=== PATIENT | female | born 1950 | race Caucasian/White ===

== ENCOUNTER → 2017-04-24 16:52 | Outpatient (CLI) | payer MEDICARE, BC ==
[2016-04-17 08:32] VITALS: BMI 32.6
[~2017-04-24 16:52] MED LIST: ACETAMINOPHEN500 M1 PO; BENADRYL25 MG PO; CALAN120 MG PO; HYDROCODONE-APA1 TAB PO; MEDROL DOSE PACK4 MG PO; NORCO 10/325 TA1 TA1 PO; ROBAXIN-750750 MG PO; ZOVIRAX800 MG PO
== END | disposition home or self-care (01) ==
LOC: D.MAMMO 15:00
DX: Z12.31 Encounter for screening mammogram for malignant neoplasm of breast (principal)

== ENCOUNTER 2017-11-11 16:14 | Emergency (ER) | payer OTHER, MEDICARE, BC ==
[2016-04-17 08:32] VITALS: BMI 32.6
== END 2017-11-11 19:35 | disposition home or self-care (01) ==
LOC: D.ER 16:14
DX: M54.2 Cervicalgia (principal); V43.52XA Car driver injured in collision with other type car in traffic accident, initial encounter; Y93.89 Activity, other specified; Y92.410 Unspecified street and highway as the place of occurrence of the external cause

== ENCOUNTER 2018-03-31 06:08 | Outpatient (CLI) | payer MEDICARE, BC ==
[2016-04-17 08:32] VITALS: BMI 32.6
== END 2018-03-31 23:59 | disposition home or self-care (01) ==
LOC: D.MAMMO 06:08
DX: Z12.31 Encounter for screening mammogram for malignant neoplasm of breast (principal)

== ENCOUNTER 2018-08-04 20:39 | Emergency (ER) | payer MEDICARE, BC ==
[~2018-08-04] VITALS: Ht 165.1 cm; Wt 117.9 kg
[2018-08-04 20:42] VITALS: Ht 165.1 cm; Wt 117.9 kg
[2018-08-04] MEDS ORDERED: NEURONTIN600 MG (20:43)
[2018-08-04 21:22] LABS: BASOPHILS 0.2 % (0-2); EOSINOPHILS 4.5 % (0-7); HEMATOCRIT 39.3 % (36.0-48.0); HEMOGLOBIN 13.1 g/dL (12-16); IMMATURE GRANULOCYTES 0.2 % (0-5); LYMPHOCYTES 21.3 % (15-50); MCH 31.6 pg (26.0-34.0); MCHC 33.3 g/dL (31.0-37.0); MCV 94.7 fL (80.0-100.0); MEAN PLATELET VOLUME 10.8 fL (7.4-10.4); MONOCYTES 8.2 % (2-11); NEUTROPHILS 65.6 % (40-80); PLATELET COUNT 212 10x3/uL (130-400); RBC 4.15 10x6/uL (4.00-5.40); RDW 13.9 % (11.5-14.5); WBC 9.3 10x3/uL (4.8-10.8)
[2018-08-04 21:40] LABS: ALBUMIN 3.6 g/dL (3.4-5.0); ALKALINE PHOSPHATASE 86 U/L (46-116); ALT (SGPT) 23 U/L (10-68); BILIRUBIN - TOTAL 0.14 mg/dL (0.2-1.3); CALC OSMOLALITY 283 mosm/kg (275-300); CHLORIDE - SERUM 105 mmol/L (98-107); CREATININE - SERUM 0.8 mg/dL (0.6-1.3); GLUCOSE 134 mg/dL (74-106); POTASSIUM - SERUM 3.9 mmol/L (3.5-5.1); PROTEIN - SERUM 7.3 g/dL (6.4-8.2); SODIUM 141 mmol/L (136-145); UREA NITROGEN 16 mg/dL (7-18); eGFR NON AFRICAN AMERICAN 76 mL/min (90-120)
[2018-08-04 21:42] LABS: AMYLASE - SERUM 21 U/L (25-115); LIPASE 150 U/L (73-393); TROPONIN-I < 0.017 ng/mL (0.000-0.060)
[2018-08-04 22:58] LABS: COLOR YELLOW (YELLOW)
[2018-08-04 22:59] LABS: APPEARANCE CLEAR (CLEAR); BILIRUBIN NEGATIVE (NEGATIVE); GLUCOSE NEGATIVE (NEGATIVE); KETONE NEGATIVE (NEGATIVE); NITRITE NEGATIVE (NEGATIVE); PROTEIN NEGATIVE (NEGATIVE); SPECIFIC GRAVITY 1.015 (1.005-1.020); UROBILINOGEN NORMAL (NORMAL)
[2018-08-05 00:36] VITALS: BP 148/95
== END 2018-08-05 00:36 | disposition home or self-care (01) ==
LOC: D.ER 20:39
PROVIDERS: Family Medicine
DX: R06.00 Dyspnea, unspecified (principal); R10.9 Unspecified abdominal pain; R11.0 Nausea; G40.909 Epilepsy, unspecified, not intractable, without status epilepticus

== ENCOUNTER → 2018-12-01 08:43 | Outpatient (CLI) | payer OTHER ==
[2018-08-04 20:42] VITALS: BMI 32.6
[~2018-12-01 08:43] MED LIST changes: +NEURONTIN600 MG
--- NOTE | 2018-12-04 13:10 | EC ---
PATIENT:PHILL ABERNATHY DATE OF SERVICE: 12/01/18 SEX: F MEDICAL RECORD: [id number] DATE OF : [birth year] LOCATION:D[facility] AGE OF PATIENT: 68 ADMISSION DATE: 12/01/18 REFERRING PHYSICIAN: INTERPRETING PHYSICIAN: BILLY PACE MD ECHOCARDIOGRAM REPORT ECHO CHARGES 4 ECHO COMPLETE Date: 12/01/18 CLINICAL DIAGNOSIS: HEART VALVE DISORDER/MITRAL VALVE REGURG ECHOCARDIOGRAPHIC MEASUREMENTS (adult normal given) AC root (d.<3.7cm) 3.1 cm LV Septum d (<1.2 cm> 1.4 cm Valve Excursion 1.7 cm LV Septum (systole) 1.7 cm Left Atria (s.<4.0cm> 4.2 cm LVPW d(<1.2cm) 1.5 cm RV (d.<2.3cm) 3.8 cm LVPW (sytole) 1.8 cm LV diastole(<5.6CM) 5.1 cm MV E-F(>70mm/sec) cm LV systole 3.2 cm LVOT Diameter 1.6 cm MV exc.(>10mm) 1.1 cm Est.ejection fraction (50-75%) % DOPPLER: LVIT cm/sec A 106 cm/sec E 88.0 cm/sec LA cm/sec RVSP 32 mmHg LVOT 121 cm/sec AOP1/2T m/s Asc. 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 Faulkner TAPE# PACS Pericardial Effusion N DATE OF SERVICE: Adequate 2D, color flow and spectral Doppler, and M-Mode LVH is present. LV internal dimensions are normal. Wall motion is normal. EF is greater than or equal to 55%. Aortic valve is tricuspid. No evidence of stenosis by Doppler interrogation. Left atrium is minimally dilated at 4.2 cm. Mitral valve shows no prolapse. Trace MR. Right-sided chambers appear grossly normal. Trace TR. ECHOCARDIOGRAM REPORT [id number] PHILL ABERNATHY TRANSINT:[id number] Voice Confirmation ID: [id number] DOCUMENT ID: [id number] BILLY PACE MD at 1310 CC: [id number] DICTATION DATE: 12/02/18 1254 PERCUSSION INSTRUMENT TUNER: 12/02/18 1344 DEP CLI 12/01/18 [place] [id number] [place] [id number]
== END | disposition home or self-care (01) ==
LOC: D.HCCARDIO 08:43
PROVIDERS: ATTEND Internal Medicine Interventional Cardiology
DX: I34.9 Nonrheumatic mitral valve disorder, unspecified (principal)

== ENCOUNTER → 2019-06-05 12:00 | Outpatient (CLI) | payer OTHER ==
[2018-08-04 20:42] VITALS: BMI 32.6
== END | disposition home or self-care (01) ==
LOC: D.MAMMO 11:00
PROVIDERS: ATTEND Family Medicine
DX: Z12.31 Encounter for screening mammogram for malignant neoplasm of breast (principal)

== ENCOUNTER 2020-06-20 08:00 | Outpatient (CLI) | payer OTHER ==
[2018-08-04 20:42] VITALS: BMI 32.6
== END 2020-06-20 13:26 | disposition home or self-care (01) ==
LOC: D.MAMMO 08:00
PROVIDERS: ATTEND Family Medicine
DX: Z12.31 Encounter for screening mammogram for malignant neoplasm of breast (principal)